=== PATIENT | male | born 1960 | race Caucasian/White ===

== ENCOUNTER 2020-08-18 13:15 | Emergency (ER) | payer OTHER, BC ==
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
--- NOTE | 2020-08-18 14:18 | CR ---
EXAMINATION: Ribs 2V w Chest Lt SEX: Male AGE: 60 years CLINICAL HISTORY: 60-year-old male complaining of Left chest PAIN following a fall from bobcat. INTERPRETATION: Abnormal. 1. *Acute minimally displaced FRACTURE posterior lateral left seventh (7) rib. 2. No ipsilateral pleural hematoma, dependent pleural effusion, or left-sided pneumothorax. 3. 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 4. Normal cardiac silhouette and mediastinal width. No pulmonary vascular congestion or alveolar edema. 5. No lung mass or hilar lymphadenopathy. CONCLUSION: Left seventh rib fracture.
[2020-08-18] MEDS ORDERED: Acetaminophen/HYDROcodone 325-10 MG Tab PO ONE (15:19)
== END 2020-08-18 15:51 | disposition home or self-care (01) ==
LOC: DL.ED 13:15
DX: S22.31XA Fracture of one rib, right side, initial encounter for closed fracture (principal); S81.812A Laceration without foreign body, left lower leg, initial encounter; Z79.899 Other long term (current) drug therapy; W19.XXXA Unspecified fall, initial encounter
CPT/HCPCS: 71101; 99283; A9270